=== PATIENT | female | born 1970 | race Caucasian/White ===

== ENCOUNTER 2023-06-02 12:18 | Day surgery (SDC) | payer OTHER ==
[2023-06-02] MEDS ORDERED: Decadron 4 MG INJ IV ONE (12:19)
[2023-06-02] MEDS ORDERED: BUPIVACAINE 0.5% VIAL IJ ONE (12:19)
[2023-06-02] MEDS ORDERED: LIDOCAINE HCL 1% 50 MG/5 ML VL PF IJ ONE (12:19)
[2023-06-02] MEDS ORDERED: Depo-Medrol 40 MG/ML IM ONE (12:19)
[2023-06-02 12:43] LABS: HCG URINE TEST NEGATIVE (NEGATIVE)
[2023-06-02] MEDS ORDERED: DIPRIVAN 200 MG/20 ML IV ONE (13:27)
--- NOTE | 2023-06-02 14:43 | XRAY ---
Indication: Bilateral SI joint and bilateral piriformis injection. Intraoperative fluoroscopy provided for 39 seconds. 7 digital spot image submitted for interpretation demonstrates posterior needle tips projecting over the left and right SI joint. Additional posterior needle tips project over the left and right piriformis with small amount of contrast injected for needle tip placement. Correlate with intraoperative findings/report.
--- NOTE | 2023-06-02 17:05 | XRAY ---
39 seconds of fluoroscopy was used in surgery for a bilateral sacroiliac joint injection.
== END 2023-06-02 14:00 | disposition home or self-care (01) ==
LOC: SDC-PAIN 12:18
PROVIDERS: ATTEND Psychiatry & Neurology Pain Medicine
DX: M46.1 Sacroiliitis, not elsewhere classified (principal); M79.18 Myalgia, other site; Z79.899 Other long term (current) drug therapy
CPT/HCPCS: 01992; 20552; 27096; 72202; 77002; 81025; G0260; J1030; J1100; J2001; J2704; Q9966